=== PATIENT | female | born 1970 | race Caucasian/White ===

== ENCOUNTER 2019-05-18 04:08 | Inpatient (IN) | payer BC, OTHER ==
[~2019-05-18] VITALS: Ht 160 cm; Wt 61.2 kg
[~2019-05-18 04:08] MED LIST: DEXT10TA7 PO; MEGE40TA PO; METO25TA35 PO
[2019-05-18] MEDS ORDERED: MORPHINE SULFATE 4 MG/ML, 1ML ONE (04:28)
[2019-05-18] MEDS ORDERED: SODIUM CHLORIDE FLUSH 10ML SYR IVF ONE (04:30)
[2019-05-18] MEDS ORDERED: MORPHINE SULFATE 4 MG/ML, 1ML IVPush ONE (04:30)
--- NOTE | 2019-05-18 04:34 | NUR ---
MEDICATED FOR PAIN AND WARM PACK APPLIED TO THE ABD.
--- NOTE | 2019-05-18 04:50 | NUR ---
UP TO THE BR. CC UA COLLECTED AND SENT TO THE LAB.
--- NOTE | 2019-05-18 04:57 | NUR ---
US IN ROOM.
[2019-05-18 04:59] LABS: BASOPHILS # (AUTO) 0.02 x10^3/uL (0-0.1); BASOPHILS % (AUTO) 0 % (0-1); EOSINOPHILS # (AUTO) 0.09 x10^3/uL (0-0.4); EOSINOPHILS % (AUTO) 1 % (1-7); LYMPHOCYTES # (AUTO) 1.04 x10^3/uL (1-3.4); LYMPHOCYTES % (AUTO) 8 % (22-44); MD NO; MEAN CORPUSCULAR HEMOGLOBIN 32.6 pg (27.0-34.8); MEAN CORPUSCULAR HGB CONC 33.5 g/dL (32.4-35.8); MEAN CORPUSCULAR VOLUME 97.2 fL (80-100); MEAN PLATELET VOLUME 7.9 fL (7.4-10.4); MONOCYTES # (AUTO) 0.12 x10^3/uL (0.2-0.8); MONOCYTES % (AUTO) 1 % (2-9); NEUTROPHILS # (AUTO) 11.53 x10^3/uL (1.8-6.8); NEUTROPHILS % (AUTO) 90 % (42-75); PLATELET COUNT 261 x10^3/uL (130-400); RED BLOOD COUNT 4.36 x10^6/uL (3.82-5.3)
[2019-05-18] MEDS ORDERED: ONDANSETRON 2MG/ML, 2ML IVPush ONE (05:00)
[2019-05-18 05:05] LABS: ALANINE AMINOTRANSFERASE 22 U/L (12-78); ALBUMIN 3.9 g/dL (3.4-5.0); ANION GAP 8 mmol/L (5-15); CALCIUM 8.5 mg/dL (8.5-10.1); CHLORIDE 110 mmol/L (98-107); CREATININE 0.84 mg/dL (0.55-1.02)
[2019-05-18 05:07] LABS: ALKALINE PHOSPHATASE 51 U/L (45-117); BILIRUBIN,TOTAL 0.3 mg/dL (0.2-1.0); TOTAL PROTEIN 6.9 g/dL (6.4-8.2)
[2019-05-18 05:14] LABS: CULTURE INDICATED? YES; MICROSCOPIC INDICATED
--- NOTE | 2019-05-18 05:28 | NUR ---
PAIN RE-ASSESSED. " BETTER " THE PT STATED THAT " I WILL LET YOU KNOW WHEN I NEED MORE ".
--- NOTE | 2019-05-18 06:12 | NUR ---
THE PT WAS UPDATED ON POC.
--- NOTE | 2019-05-18 06:35 | NUR ---
THE PT IS GOING TO CT.
--- NOTE | 2019-05-18 06:56 | NUR ---
RECEIVED REPORT FROM MACKENZIE GARNETT RN. PT RESTING ON [place]. NADN. PANDYA.
[2019-05-18] MEDS ORDERED: CEFOTETAN PMX 1GM/50ML 50 ML ONE (07:27)
[2019-05-18] MEDS ORDERED: METRONIDAZOLE PMX 500MG/100ML 100 ML ONE (07:27)
[2019-05-18] MEDS ORDERED: METRONIDAZOLE PMX 500MG/100ML 100 ML IV ONE (07:30)
[2019-05-18] MEDS ORDERED: CEFOTETAN PMX 1GM/50ML 50 ML IV ONE (07:30)
--- NOTE | 2019-05-18 07:30 | NUR ---
paged dr navarrete for dr mcdonald
--- NOTE | 2019-05-18 07:42 | NUR ---
PT RESTING ON GURNEY. AWARE OF POC FOR ADMIT TO SURG. FAMILY AT BEDSIDE. VSS.
--- NOTE | 2019-05-18 07:45 | NUR ---
dr navarrete returned call to dr mcdonald
--- NOTE | 2019-05-18 07:48 | NUR ---
REPORT GIVEN TO [facility]. ALL QUESTIONS ANSWERED. AWAITING PT TRANSPORT.
[2019-05-18] MEDS ORDERED: ROCURONIUM 10MG/ML,5ML ONE (07:52)
[2019-05-18] MEDS ORDERED: MIDAZOLAM 1 MG/ML, 2ML ONE (07:52)
[2019-05-18] MEDS ORDERED: SUCCINYLCHOLINE 20 MG/ML, 10ML ONE (07:52)
[2019-05-18] MEDS ORDERED: PROPOFOL 10 MG/ML, 20ML ONE (07:52)
[2019-05-18] MEDS ORDERED: CEFOTETAN PMX 2GM/50ML 50 ML ONE (07:52)
[2019-05-18] MEDS ORDERED: LIDOCAINE-MPF 2% ,5ML ONE (07:52)
[2019-05-18] MEDS ORDERED: FENTANYL PF 250 MCG/5ML ONE (07:52)
[2019-05-18] MEDS ORDERED: ONDANSETRON 2MG/ML, 2ML ONE ×2 (08:05→15:28)
[2019-05-18] MEDS ORDERED: BUPIVACAINE/EPI 0.5% 1:200K ONE (08:39)
[2019-05-18] MEDS ORDERED: BUPIVACAINE/PF-EPI 0.5% 1:200K INFIL ONE (09:13)
[2019-05-18] MEDS ORDERED: LORazepam 2 MG/ML, 1ML IVPush PRN ×2 (10:00→11:30)
[2019-05-18] MEDS ORDERED: OXYcodone 5 MG/5 ML ORAL.SOL UDC PO PRN (10:00)
[2019-05-18] MEDS ORDERED: ONDANSETRON 2MG/ML, 2ML IV PRN (10:00)
[2019-05-18] MEDS ORDERED: KETOROLAC 30 MG/1 ML IV PRN (10:00)
[2019-05-18] MEDS ORDERED: ACETAMINOPHEN 325 MG TABLET PO PRN (10:00)
[2019-05-18] MEDS ORDERED: METOPROLOL 1 MG/ML, 5ML IV PRN (10:00)
[2019-05-18] MEDS ORDERED: HYDROmorphone 2 MG/ML, 1ML IVPush PRN (10:00)
[2019-05-18] MEDS ORDERED: MEPERIDINE/PF 25MG/0.5ML IVPush PRN (10:00)
[2019-05-18] MEDS ORDERED: FENTANYL PF 100 MCG/2ML ONE (10:26)
[2019-05-18] MEDS ORDERED: OXYcodone 5 MG/5 ML ORAL.SOL UDC ONE ×2 (10:27)
[2019-05-18] MEDS: FENTANYL PF 100 MCG/2ML IV PRN ×2 (10:30→10:40)
[2019-05-18] MEDS ORDERED: HALOPERIDOL 5 MG/ML IVPush PRN (11:30)
[2019-05-18] MEDS ORDERED: LACTATED RINGERS 1,000 ML IV SCH (11:30)
[2019-05-18] MEDS ORDERED: SCOPOLAMINE PATCH, 1.5MG PATCH.TD72 TD PRN (11:30)
[2019-05-18] MEDS ORDERED: MORPHINE SULFATE 4 MG/ML, 1ML IVPush PRN (11:30)
[2019-05-18] MEDS ORDERED: TRAZODONE 50MG TABLET PO PRN (11:30)
[2019-05-18] MEDS ORDERED: LORazepam 1MG TABLET PO PRN (11:30)
[2019-05-18] MEDS ORDERED: OXYcodone IR 5MG TABLET PO PRN (11:30)
[2019-05-18] MEDS ORDERED: CALCIUM CARBONATE 500 MG TAB.CHEW PO PRN (11:30)
[2019-05-18] MEDS ORDERED: DIPHENHYDRAMINE 25 MG CAPSULE PO PRN (11:30)
[2019-05-18] MEDS ORDERED: DEXAMETHASONE 4 MG/ML, 1ML IVPush PRN (11:30)
[2019-05-18] MEDS ORDERED: CEFTRIAXONE 2 GM in DEXTROSE 5% 50 ML IV SCH (11:30)
[2019-05-18] MEDS: ACETAMINOPHEN 500 MG TABLET PO SCH ×3 (11:46→21:35)
[2019-05-18] MEDS: KETOROLAC 30 MG/1 ML IVPush SCH ×3 (11:46→23:20)
[2019-05-18] MEDS: CEFTRIAXONE PMX 2GM/50ML 50 ML IV SCH (12:17)
[2019-05-18 13:40] VITALS: BP 115/77
[2019-05-18] MEDS: ONDANSETRON 2MG/ML, 2ML IV PRN ×2 (13:56→20:14)
[2019-05-18] MEDS ORDERED: SUMA50TA3 PO (14:31)
[2019-05-18] MEDS ORDERED: FLUT9.9S NS (14:31)
[2019-05-18] MEDS: SUMATRIPTAN 50 MG TABLET PO PRN ×2 (14:46→15:20)
[2019-05-18] MEDS: DIPHENHYDRAMINE 50 MG/ML, 1ML IVPush PRN (15:26)
[2019-05-18] MEDS ORDERED: DEXAMETHASONE 4 MG/ML, 1ML ONE (15:28)
[2019-05-18] MEDS ORDERED: SUGAMMADEX 200 MG/2 ML IVPush ONE (15:28)
[2019-05-18] MEDS: METRONIDAZOLE PMX 500MG/100ML 100 ML IVPB SCH (17:13)
[2019-05-18 20:00] VITALS: BP 110/74
[2019-05-18] MEDS: SUMATRIPTAN 6MG/0.5ML SQ PRN (20:13)
[2019-05-18] MEDS: SODIUM CHLORIDE FLUSH 10ML SYR IVF SCH (21:00)
[2019-05-18] MEDS: ADDERALL 10 MG PO SCH (21:00)
[2019-05-19] MEDS: METRONIDAZOLE PMX 500MG/100ML 100 ML IVPB SCH ×3 (01:13→17:25)
[2019-05-19 01:56] VITALS: BP 109/69
[2019-05-19 03:38] LABS: MEAN CORPUSCULAR HGB CONC 33.5 g/dL (32.4-35.8); MEAN CORPUSCULAR VOLUME 98.5 fL (80-100); MEAN PLATELET VOLUME 8.3 fL (7.4-10.4); PLATELET COUNT 236 x10^3/uL (130-400); RED BLOOD COUNT 3.86 x10^6/uL (3.82-5.3); RED CELL DISTRIBUTION WIDTH 13.8 % (9.6-15.2)
[2019-05-19 03:45] LABS: ANION GAP 7 mmol/L (5-15); CALCIUM 8.6 mg/dL (8.5-10.1); CHLORIDE 109 mmol/L (98-107); CREATININE 0.69 mg/dL (0.55-1.02)
[2019-05-19 03:51] LABS: BASOPHILS % (AUTO) 0 % (0-1); EOSINOPHILS % (AUTO) 0 % (1-7); LYMPHOCYTES # (AUTO) 0.56 x10^3/uL (1-3.4); LYMPHOCYTES % (AUTO) 3 % (22-44); MD SCAN; MONOCYTES # (AUTO) 0.36 x10^3/uL (0.2-0.8); MONOCYTES % (AUTO) 2 % (2-9); NEUTROPHILS # (AUTO) 17.57 x10^3/uL (1.8-6.8); NEUTROPHILS % (AUTO) 95 % (42-75)
[2019-05-19] MEDS: ACETAMINOPHEN 500 MG TABLET PO SCH ×4 (05:59→23:33)
[2019-05-19] MEDS: KETOROLAC 30 MG/1 ML IVPush SCH ×4 (05:59→23:33)
[2019-05-19] MEDS: SUMATRIPTAN 6MG/0.5ML SQ PRN (06:31)
[2019-05-19] MEDS: ONDANSETRON 2MG/ML, 2ML IV PRN ×2 (06:31→19:41)
[2019-05-19 07:24] VITALS: BP 132/85
[2019-05-19] MEDS: ADDERALL 10 MG PO SCH ×2 (09:00→19:56)
[2019-05-19] MEDS: SODIUM CHLORIDE FLUSH 10ML SYR IVF SCH ×2 (09:00→19:42)
[2019-05-19] MEDS: ENOXAPARIN 40 MG/0.4 ML SQ SCH (09:01)
[2019-05-19] MEDS: FLUTICASONE NASAL SPRAY 16GM NAS SCH (09:01)
[2019-05-19] MEDS: METOPROLOL TARTRATE 25 MG TABLET PO SCH (09:02)
[2019-05-19] MEDS: CEFTRIAXONE PMX 2GM/50ML 50 ML IV SCH (11:34)
[2019-05-19] MEDS: D5%-0.45NACL+KCL 20MEQ 1,000 ML IV SCH (12:44)
[2019-05-19 14:23] VITALS: BP 132/86
[2019-05-19] MEDS: DIPHENHYDRAMINE 50 MG/ML, 1ML IVPush PRN (14:33)
[2019-05-19 19:46] VITALS: BP 146/89
[2019-05-20] MEDS: METRONIDAZOLE PMX 500MG/100ML 100 ML IVPB SCH ×3 (01:33→17:34)
[2019-05-20] MEDS: ONDANSETRON 2MG/ML, 2ML IV PRN ×2 (01:37→14:25)
[2019-05-20 04:22] VITALS: BP 151/84
[2019-05-20] MEDS: KETOROLAC 30 MG/1 ML IVPush SCH ×3 (05:27→17:11)
[2019-05-20] MEDS: ACETAMINOPHEN 500 MG TABLET PO SCH ×3 (05:27→17:11)
[2019-05-20 06:01] LABS: CHLORIDE 110 mmol/L (98-107)
[2019-05-20 06:08] LABS: BASOPHILS # (AUTO) 0.02 x10^3/uL (0-0.1); BASOPHILS % (AUTO) 0 % (0-1); EOSINOPHILS # (AUTO) 0.01 x10^3/uL (0-0.4); EOSINOPHILS % (AUTO) 0 % (1-7); LYMPHOCYTES # (AUTO) 1.61 x10^3/uL (1-3.4); LYMPHOCYTES % (AUTO) 12 % (22-44); MD NO; MEAN CORPUSCULAR HEMOGLOBIN 33.2 pg (27.0-34.8); MEAN CORPUSCULAR HGB CONC 33.6 g/dL (32.4-35.8); MEAN CORPUSCULAR VOLUME 98.7 fL (80-100); MEAN PLATELET VOLUME 8.4 fL (7.4-10.4); MONOCYTES # (AUTO) 0.61 x10^3/uL (0.2-0.8); MONOCYTES % (AUTO) 5 % (2-9); NEUTROPHILS % (AUTO) 83 % (42-75); PLATELET COUNT 228 x10^3/uL (130-400); RED BLOOD COUNT 3.61 x10^6/uL (3.82-5.3); RED CELL DISTRIBUTION WIDTH 13.9 % (9.6-15.2)
[2019-05-20 06:12] LABS: ANION GAP 6 mmol/L (5-15); CALCIUM 8.4 mg/dL (8.5-10.1); CREATININE 0.81 mg/dL (0.55-1.02)
[2019-05-20] MEDS: D5%-0.45NACL+KCL 20MEQ 1,000 ML IV SCH (08:36)
[2019-05-20 08:40] VITALS: BP 148/83
[2019-05-20] MEDS: SODIUM CHLORIDE FLUSH 10ML SYR IVF SCH ×3 (09:00→21:00)
[2019-05-20] MEDS: ADDERALL 10 MG PO SCH ×2 (09:20→21:00)
[2019-05-20] MEDS: ENOXAPARIN 40 MG/0.4 ML SQ SCH (09:20)
[2019-05-20] MEDS: FLUTICASONE NASAL SPRAY 16GM NAS SCH (09:20)
[2019-05-20] MEDS: METOPROLOL TARTRATE 25 MG TABLET PO SCH (09:21)
[2019-05-20] MEDS ORDERED: SIMETHICONE 125 MG CHEW TAB PO PRN (09:30)
[2019-05-20] MEDS: CEFTRIAXONE PMX 2GM/50ML 50 ML IV SCH (11:23)
[2019-05-20 13:15] VITALS: BP 129/68
[2019-05-20] MEDS ORDERED: PROMETHAZINE 25 MG/ML, 1ML IM ONE (20:50)
[2019-05-20 21:05] VITALS: BP 153/88
[2019-05-21] MEDS: METRONIDAZOLE PMX 500MG/100ML 100 ML IVPB SCH ×2 (01:30→09:06)
[2019-05-21 02:21] VITALS: BP 146/82
[2019-05-21 05:24] LABS: BASOPHILS # (AUTO) 0.03 x10^3/uL (0-0.1); BASOPHILS % (AUTO) 1 % (0-1); EOSINOPHILS # (AUTO) 0.13 x10^3/uL (0-0.4); EOSINOPHILS % (AUTO) 2 % (1-7); LYMPHOCYTES # (AUTO) 1.12 x10^3/uL (1-3.4); LYMPHOCYTES % (AUTO) 16 % (22-44); MD NO; MEAN CORPUSCULAR HEMOGLOBIN 33.2 pg (27.0-34.8); MEAN CORPUSCULAR VOLUME 97.9 fL (80-100); MEAN PLATELET VOLUME 8.5 fL (7.4-10.4); MONOCYTES # (AUTO) 0.44 x10^3/uL (0.2-0.8); MONOCYTES % (AUTO) 6 % (2-9); NEUTROPHILS # (AUTO) 5.48 x10^3/uL (1.8-6.8); NEUTROPHILS % (AUTO) 76 % (42-75); PLATELET COUNT 222 x10^3/uL (130-400); RED BLOOD COUNT 3.59 x10^6/uL (3.82-5.3); RED CELL DISTRIBUTION WIDTH 13.6 % (9.6-15.2)
[2019-05-21 05:37] LABS: ANION GAP 6 mmol/L (5-15); CHLORIDE 112 mmol/L (98-107); CREATININE 0.67 mg/dL (0.55-1.02)
[2019-05-21] MEDS: ACETAMINOPHEN 500 MG TABLET PO SCH ×2 (05:43)
[2019-05-21] MEDS: KETOROLAC 30 MG/1 ML IVPush SCH ×2 (05:43)
[2019-05-21 07:58] VITALS: BP 149/84
[2019-05-21] MEDS: SODIUM CHLORIDE FLUSH 10ML SYR IVF SCH ×2 (09:00)
[2019-05-21] MEDS: ADDERALL 10 MG PO SCH (09:00)
[2019-05-21] MEDS: METOPROLOL TARTRATE 25 MG TABLET PO SCH (09:05)
[2019-05-21] MEDS: ENOXAPARIN 40 MG/0.4 ML SQ SCH (09:05)
[2019-05-21] MEDS: FLUTICASONE NASAL SPRAY 16GM NAS SCH (09:06)
[2019-05-21] MEDS ORDERED: AMOX1TAB64 PO (10:06)
[2019-05-21] MEDS: CEFTRIAXONE PMX 2GM/50ML 50 ML IV SCH (10:16)
== END 2019-05-21 12:02 | disposition home or self-care (01) | DRG 391 ==
LOC: ED 05:08 → EDIP 07:19 → 4NOR 11:10
PROVIDERS: ADMIT Colon & Rectal Surgery; ATTEND Colon & Rectal Surgery
PROC: 0W9G40Z Drainage of Peritoneal Cavity with Drainage Device, Percutaneous Endoscopic Approach (ICD-10-PCS; principal; 2019-05-18 08:30)
DX: K57.80 Diverticulitis of intestine, part unspecified, with perforation and abscess without bleeding (principal); K65.9 Peritonitis, unspecified; I10 Essential (primary) hypertension; Z91.048 Other nonmedicinal substance allergy status
CPT/HCPCS: 36415; 99285; J3490; 74177; 76700; 80048; 80053; 81001; 83605; 83690; 83735; 85025; 87040; 87086; 93005; 96374; G0378; J0696; J1100; J1650; J1885; J2250; J2405; J2550; J2704; J3010; J0330; J1200; J2270; J3030; J3480

== ENCOUNTER → 2019-12-06 | Outpatient (CLI) | payer BC ==
[~2019-12-06] MED LIST changes: +AMOX1TAB64 PO; +ASCO-96 PO; +ATOR20TA37 PO; +FLUT9.9S NS; +GARL1TAB2 PO; -MEGE40TA PO; +MEGE40TA3 PO; +MOME17SP9 NAS; +SUMA50TA3 PO
[2019-12-06 11:59] LABS: BASOPHILS # (AUTO) 0.06 x10^3/uL (0-0.1); BASOPHILS % (AUTO) 1 % (0-1); EOSINOPHILS # (AUTO) 0.12 x10^3/uL (0-0.4); EOSINOPHILS % (AUTO) 2 % (1-7); LYMPHOCYTES % (AUTO) 30 % (22-44); MD NO; MEAN CORPUSCULAR HEMOGLOBIN 32.6 pg (27.0-34.8); MEAN CORPUSCULAR HGB CONC 33.7 g/dL (32.4-35.8); MEAN CORPUSCULAR VOLUME 96.9 fL (80-100); MEAN PLATELET VOLUME 7.9 fL (7.4-10.4); MONOCYTES # (AUTO) 0.46 x10^3/uL (0.2-0.8); MONOCYTES % (AUTO) 9 % (2-9); NEUTROPHILS # (AUTO) 2.83 x10^3/uL (1.8-6.8); NEUTROPHILS % (AUTO) 57 % (42-75); PLATELET COUNT 359 x10^3/uL (130-400); RED BLOOD COUNT 4.56 x10^6/uL (3.82-5.3); RED CELL DISTRIBUTION WIDTH 13.7 % (9.6-15.2)
[2019-12-06 12:14] LABS: ALBUMIN 4.3 g/dL (3.4-5.0); CALCIUM 9.3 mg/dL (8.5-10.1)
[2019-12-06 12:19] LABS: ALANINE AMINOTRANSFERASE 24 U/L (12-78); ALKALINE PHOSPHATASE 59 U/L (45-117); ANION GAP 5 mmol/L (5-15); BILIRUBIN,TOTAL 0.4 mg/dL (0.2-1.0); CHLORIDE 105 mmol/L (98-107); CREATININE 0.76 mg/dL (0.55-1.02); TOTAL PROTEIN 7.7 g/dL (6.4-8.2)
== END | disposition home or self-care (01) ==
LOC: STAR 10:48
PROVIDERS: ATTEND Surgery
DX: Z01.818 Encounter for other preprocedural examination (principal)
CPT/HCPCS: 36415; 80053; 85025; 93005

== ENCOUNTER 2019-12-13 06:47 | Inpatient (IN) | payer BC ==
[~2019-12-13] VITALS: Ht 160 cm; Wt 55.0 kg
[~2019-12-13 06:47] MED LIST changes: +BUPIVACAINE/PF 0.5% ONE; +INDOCYANINE GREEN 25 MG VIAL ONE
[2019-12-13] MEDS ORDERED: LACTATED RINGERS 1,000 ML IV SCH (07:10)
[2019-12-13] MEDS ORDERED: ACETAMINOPHEN 500 MG TABLET PO ONE (07:30)
[2019-12-13] MEDS ORDERED: SCOPOLAMINE 1MG PATCH TD SCH (07:30)
[2019-12-13] MEDS ORDERED: GABAPENTIN 300 MG CAPSULE PO ONE ×2 (07:30→15:00)
[2019-12-13] MEDS ORDERED: ACETAMINOPHEN 500 MG TABLET ONE ×2 (07:36→13:32)
[2019-12-13] MEDS ORDERED: GABAPENTIN 300 MG CAPSULE ONE ×2 (07:37→14:54)
[2019-12-13] MEDS ORDERED: SCOPOLAMINE 1MG PATCH TD ONE (07:37)
[2019-12-13] MEDS ORDERED: MIDAZOLAM 1 MG/ML, 2ML ONE (08:21)
[2019-12-13] MEDS ORDERED: FENTANYL PF 250 MCG/5ML ONE (08:22)
[2019-12-13] MEDS ORDERED: MEPERIDINE/PF 25MG/ML,1ML IVPush PRN (08:30)
[2019-12-13] MEDS ORDERED: HYDROmorphone 2 MG/ML, 1ML IVPush PRN (08:30)
[2019-12-13] MEDS ORDERED: hydrALAzine 20 MG/ML, 1ML IV PRN (08:30)
[2019-12-13] MEDS ORDERED: HALOPERIDOL 5 MG/ML IV PRN (08:30)
[2019-12-13] MEDS ORDERED: LABETALOL 5MG/ML, 20ML IV PRN (08:30)
[2019-12-13] MEDS ORDERED: PROMETHAZINE 25 MG/ML, 1ML IV PRN (08:30)
[2019-12-13] MEDS ORDERED: OXYcodone 5 MG/5 ML ORAL.SOL UDC PO PRN (08:30)
[2019-12-13] MEDS ORDERED: CEFOTETAN 2 GM ONE (08:36)
[2019-12-13] MEDS ORDERED: SUCCINYLCHOLINE 20 MG/ML, 10ML ONE (10:08)
[2019-12-13] MEDS ORDERED: GLYCOPYRROLATE 0.2MG/1ML, 5ML ONE (10:08)
[2019-12-13] MEDS ORDERED: ROPIvacaine/PF 0.2%, 20 ML ONE ×2 (10:08)
[2019-12-13] MEDS ORDERED: PROPOFOL 10 MG/ML, 20ML ONE (10:08)
[2019-12-13] MEDS ORDERED: EPINEPHRINE 1 MG/ML, 1ML ONE (10:08)
[2019-12-13] MEDS ORDERED: ONDANSETRON 2MG/ML, 2ML ONE (10:08)
[2019-12-13] MEDS ORDERED: NEOSTIGMINE 1 MG/ML, 10ML ONE (10:08)
[2019-12-13] MEDS ORDERED: ROCURONIUM 10MG/ML,5ML ONE (10:08)
[2019-12-13] MEDS ORDERED: DEXAMETHASONE 4 MG/ML, 1ML ONE (10:08)
[2019-12-13] MEDS ORDERED: CEFAZOLIN 1,000 MG ONE (10:08)
[2019-12-13] MEDS ORDERED: OXYcodone 5 MG/5 ML ORAL.SOL UDC ONE (10:52)
[2019-12-13] MEDS ORDERED: FENTANYL PF 100 MCG/2ML ONE ×2 (10:52→12:06)
[2019-12-13] MEDS: FENTANYL PF 100 MCG/2ML IV PRN ×6 (10:53→12:45)
[2019-12-13] MEDS ORDERED: DIPHENHYDRAMINE 50 MG/ML, 1ML ONE (13:30)
[2019-12-13] MEDS: DIPHENHYDRAMINE 50 MG/ML, 1ML IVPush PRN ×2 (13:30→20:36)
[2019-12-13] MEDS: ACETAMINOPHEN 500 MG TABLET PO SCH ×2 (13:30→19:54)
[2019-12-13] MEDS ORDERED: LORazepam 2 MG/ML, 1ML IVPush PRN (14:00)
[2019-12-13] MEDS ORDERED: SCOPOLAMINE 1MG PATCH TD PRN (14:00)
[2019-12-13] MEDS ORDERED: ONDANSETRON 2MG/ML, 2ML IV PRN (14:00)
[2019-12-13] MEDS ORDERED: LORazepam 1MG TABLET PO PRN (14:00)
[2019-12-13] MEDS ORDERED: CALCIUM CARBONATE 500 MG TAB.CHEW PO PRN (14:00)
[2019-12-13] MEDS ORDERED: OXYcodone IR 5MG TABLET PO PRN (14:00)
[2019-12-13] MEDS ORDERED: DIPHENHYDRAMINE 25 MG CAPSULE PO PRN (14:00)
[2019-12-13] MEDS ORDERED: HALOPERIDOL 5 MG/ML IVPush PRN (14:00)
[2019-12-13] MEDS ORDERED: DEXAMETHASONE 4 MG/ML, 1ML IVPush PRN (14:00)
[2019-12-13] MEDS ORDERED: TRAZODONE 50MG TABLET PO PRN (14:00)
[2019-12-13] MEDS: D5%-0.45NACL+KCL 20MEQ 1,000 ML IV SCH (17:05)
[2019-12-13 19:52] VITALS: BP 164/96
[2019-12-13] MEDS ORDERED: SUMATRIPTAN 50 MG TABLET PO PRN (20:00)
[2019-12-13] MEDS: DEXTROAMPHETAMINE HOMEMEDPO SCH (20:21)
[2019-12-13] MEDS: AMPHETAMINE HOMEMEDPO SCH (20:21)
[2019-12-14 00:40] VITALS: BP 158/87
[2019-12-14] MEDS: ACETAMINOPHEN 500 MG TABLET PO SCH ×4 (02:00→19:47)
[2019-12-14 03:30] LABS: BASOPHILS % (AUTO) 0 % (0-1); EOSINOPHILS % (AUTO) 0 % (1-7); LYMPHOCYTES # (AUTO) 0.57 x10^3/uL (1-3.4); LYMPHOCYTES % (AUTO) 5 % (22-44); MD NO; MEAN CORPUSCULAR HEMOGLOBIN 32.8 pg (27.0-34.8); MEAN CORPUSCULAR VOLUME 96.5 fL (80-100); MEAN PLATELET VOLUME 8.4 fL (7.4-10.4); MONOCYTES # (AUTO) 0.38 x10^3/uL (0.2-0.8); MONOCYTES % (AUTO) 3 % (2-9); NEUTROPHILS # (AUTO) 10.65 x10^3/uL (1.8-6.8); NEUTROPHILS % (AUTO) 92 % (42-75); PLATELET COUNT 267 x10^3/uL (130-400); RED BLOOD COUNT 3.91 x10^6/uL (3.82-5.3); RED CELL DISTRIBUTION WIDTH 13.1 % (9.6-15.2)
[2019-12-14 03:37] LABS: ANION GAP 6 mmol/L (5-15); CALCIUM 8.5 mg/dL (8.5-10.1); CHLORIDE 105 mmol/L (98-107); CREATININE 0.71 mg/dL (0.55-1.02)
[2019-12-14] MEDS: D5%-0.45NACL+KCL 20MEQ 1,000 ML IV SCH ×2 (04:50→17:51)
[2019-12-14 04:52] VITALS: BP 128/80
[2019-12-14 07:59] VITALS: BP 113/73
[2019-12-14] MEDS: ENOXAPARIN 40 MG/0.4 ML SQ SCH (08:04)
[2019-12-14] MEDS: AMPHETAMINE HOMEMEDPO SCH ×2 (08:05→19:47)
[2019-12-14] MEDS: DEXTROAMPHETAMINE HOMEMEDPO SCH ×2 (08:05→19:47)
[2019-12-14] MEDS: METOPROLOL TARTRATE 50 MG TAB PO SCH (08:05)
[2019-12-14 14:30] VITALS: BP 159/90
[2019-12-14 19:48] VITALS: BP 143/95
[2019-12-15] MEDS: ACETAMINOPHEN 500 MG TABLET PO SCH ×4 (02:00→20:59)
[2019-12-15 03:29] VITALS: BP 150/77
[2019-12-15 05:13] LABS: BASOPHILS # (AUTO) 0.04 x10^3/uL (0-0.1); BASOPHILS % (AUTO) 0 % (0-1); EOSINOPHILS # (AUTO) 0.03 x10^3/uL (0-0.4); EOSINOPHILS % (AUTO) 0 % (1-7); LYMPHOCYTES # (AUTO) 2.43 x10^3/uL (1-3.4); LYMPHOCYTES % (AUTO) 18 % (22-44); MD NO; MEAN CORPUSCULAR HEMOGLOBIN 32.5 pg (27.0-34.8); MEAN CORPUSCULAR HGB CONC 33.4 g/dL (32.4-35.8); MEAN CORPUSCULAR VOLUME 97.2 fL (80-100); MEAN PLATELET VOLUME 8.2 fL (7.4-10.4); MONOCYTES # (AUTO) 0.85 x10^3/uL (0.2-0.8); MONOCYTES % (AUTO) 6 % (2-9); NEUTROPHILS # (AUTO) 10.44 x10^3/uL (1.8-6.8); NEUTROPHILS % (AUTO) 76 % (42-75); PLATELET COUNT 254 x10^3/uL (130-400); RED BLOOD COUNT 3.78 x10^6/uL (3.82-5.3); RED CELL DISTRIBUTION WIDTH 13.1 % (9.6-15.2)
[2019-12-15 05:21] LABS: ANION GAP 6 mmol/L (5-15); CALCIUM 8.3 mg/dL (8.5-10.1); CHLORIDE 109 mmol/L (98-107); CREATININE 0.78 mg/dL (0.55-1.02)
[2019-12-15 07:25] VITALS: BP 133/83
[2019-12-15] MEDS: ENOXAPARIN 40 MG/0.4 ML SQ SCH (08:40)
[2019-12-15] MEDS: METOPROLOL TARTRATE 50 MG TAB PO SCH (08:40)
[2019-12-15] MEDS: AMPHETAMINE HOMEMEDPO SCH ×2 (08:47→20:59)
[2019-12-15] MEDS: DEXTROAMPHETAMINE HOMEMEDPO SCH ×2 (08:47→20:59)
[2019-12-15] MEDS: D5%-0.45NACL+KCL 20MEQ 1,000 ML IV SCH ×2 (09:36→23:54)
[2019-12-15 15:11] VITALS: BP 128/79
[2019-12-15 18:57] VITALS: BP 162/99
[2019-12-16 01:50] VITALS: BP 131/77
[2019-12-16] MEDS: ACETAMINOPHEN 500 MG TABLET PO SCH ×2 (02:43→08:21)
[2019-12-16 05:34] LABS: CHLORIDE 111 mmol/L (98-107)
[2019-12-16 05:40] LABS: BASOPHILS # (AUTO) 0.04 x10^3/uL (0-0.1); BASOPHILS % (AUTO) 1 % (0-1); EOSINOPHILS # (AUTO) 0.17 x10^3/uL (0-0.4); EOSINOPHILS % (AUTO) 2 % (1-7); LYMPHOCYTES # (AUTO) 2.13 x10^3/uL (1-3.4); LYMPHOCYTES % (AUTO) 28 % (22-44); MD NO; MEAN CORPUSCULAR HEMOGLOBIN 32.8 pg (27.0-34.8); MEAN CORPUSCULAR HGB CONC 33.9 g/dL (32.4-35.8); MEAN CORPUSCULAR VOLUME 96.8 fL (80-100); MEAN PLATELET VOLUME 8.4 fL (7.4-10.4); MONOCYTES # (AUTO) 0.65 x10^3/uL (0.2-0.8); MONOCYTES % (AUTO) 9 % (2-9); NEUTROPHILS # (AUTO) 4.59 x10^3/uL (1.8-6.8); NEUTROPHILS % (AUTO) 61 % (42-75); PLATELET COUNT 233 x10^3/uL (130-400); RED CELL DISTRIBUTION WIDTH 13.3 % (9.6-15.2)
[2019-12-16 05:49] LABS: ANION GAP 5 mmol/L (5-15); CALCIUM 8.6 mg/dL (8.5-10.1); CREATININE 0.66 mg/dL (0.55-1.02)
[2019-12-16 07:02] VITALS: BP 148/90
[2019-12-16] MEDS: METOPROLOL TARTRATE 50 MG TAB PO SCH (08:22)
[2019-12-16] MEDS: AMPHETAMINE HOMEMEDPO SCH (08:36)
[2019-12-16] MEDS: ENOXAPARIN 40 MG/0.4 ML SQ SCH (08:36)
[2019-12-16] MEDS: DEXTROAMPHETAMINE HOMEMEDPO SCH (08:36)
[2019-12-16] MEDS ORDERED: CELE200C PO (12:17)
[2019-12-16] MEDS ORDERED: TRAM50TA2 PO (12:18)
[2019-12-16] MEDS ORDERED: ACET-76 PO (12:19)
== END 2019-12-16 12:30 | disposition home or self-care (01) | DRG 331 ==
LOC: ORIP 06:47 → 4NE 18:47 → DCLOUNGE 12-16 12:20
PROVIDERS: ADMIT Surgery; ATTEND Surgery
PROC: 0DBP4ZZ Excision of Rectum, Percutaneous Endoscopic Approach (ICD-10-PCS; 2019-12-13)
PROC: 8E0W4CZ Robotic Assisted Procedure of Trunk Region, Percutaneous Endoscopic Approach (ICD-10-PCS; 2019-12-13)
PROC: 0DBN4ZZ Excision of Sigmoid Colon, Percutaneous Endoscopic Approach (ICD-10-PCS; principal; 2019-12-13 08:30)
DX: K57.32 Diverticulitis of large intestine without perforation or abscess without bleeding (principal); E78.00 Pure hypercholesterolemia, unspecified; E78.5 Hyperlipidemia, unspecified; G47.419 Narcolepsy without cataplexy; I10 Essential (primary) hypertension; Z90.710 Acquired absence of both cervix and uterus; Z82.49 Family history of ischemic heart disease and other diseases of the circulatory system; Z87.891 Personal history of nicotine dependence
CPT/HCPCS: 36415; J3490; 80048; 85025; 86850; 86900; 88307; G0378; J0171; J0690; J1100; J1650; J2250; J2405; J2704; J2710; J2795; J3010; J0330; J1200; J3480; J7120